=== PATIENT | male | born 1975 | race Caucasian/White ===

== ENCOUNTER 2022-04-25 15:03 | Observation (INO) ==
[2022-04-25 18:00] LABS: Basophils % 0.2 %; Hematocrit 45.3 % (37.5-50.1); Hemoglobin 15.4 g/dL (12.9-16.9); Immature Granulocytes % 0.7 % (0-4); Lymphocytes # 0.5 K/mcL (0.6-4.6); Lymphocytes % 4.5 %; Mean Corpuscular Hemoglobin 31.3 pg (28.0-33.3); Mean Corpuscular Volume 92.1 fL (83.0-100.0); Mean Platelet Volume 11.1 fL (9.4-12.4); Monocytes % 9.2 %; Neutrophils # 9.3 K/mcL (1.6-8.9); Platelet Count 248 K/mcL (140-400); Red Blood Count 4.92 M/mcL (4.19-5.50); Red Cell Distribution Width 14.7 % (11.5-14.5); Segmented Neutrophils % 85.4 %; White Blood Count 10.9 K/mcL (4.3-11.1)
[2022-04-25 18:22] LABS: Albumin/Globulin Ratio 1.1 (1.1-2.2); Bilirubin,Direct 4.2 mg/dL (0.0-0.2); Bilirubin,Indirect 1.7 mg/dL (0.0-1.0); Bilirubin,Total 5.9 mg/dL (0.3-1.0); Calcium 9.3 mg/dL (8.6-10.3); Globulin 3.7 g/dL (2.4-3.5); Potassium 4.5 mEq/L (3.5-5.1); Total Protein 7.7 g/dL (6.4-8.9); Troponin I 0.03 ng/mL (< 0.04)
[2022-04-25] MEDS ORDERED: Iopamidol - 370 500 ML MLS IVP ONE (19:56)
[2022-04-25] MEDS ORDERED: Piperacillin/Tazobactam 3.375 GM in 0.9 % Sodium Chloride Mini Bag 100 ML IVPB ONE (22:15)
[2022-04-26] MEDS ORDERED: Melatonin 3 MG TABLET PO PRN ×2 (00:07→17:13)
[2022-04-26] MEDS ORDERED: Ondansetron 4 MG/2 ML VIAL IVP PRN ×4 (00:07→17:13)
[2022-04-26] MEDS ORDERED: Acetaminophen 325 MG TABLET PO PRN ×2 (00:07→17:13)
[2022-04-26] MEDS ORDERED: Naloxone 0.4 MG/ML INJ IVP PRN ×2 (00:07→17:13)
[2022-04-26] MEDS ORDERED: 0.9 % Sodium Chloride 1,000 ML IVC SCH ×2 (00:15→09:15)
[2022-04-26 05:39] LABS: Hematocrit 42.4 % (37.5-50.1); Mean Corpuscular HGB Conc 32.5 g/dL (31.6-35.5); Mean Corpuscular Hemoglobin 30.9 pg (28.0-33.3); Mean Corpuscular Volume 94.9 fL (83.0-100.0); Platelet Count 190 K/mcL (140-400); Red Blood Count 4.47 M/mcL (4.19-5.50); Red Cell Distribution Width 14.7 % (11.5-14.5); White Blood Count 6.7 K/mcL (4.3-11.1)
[2022-04-26 05:40] LABS: Hemoglobin 13.8 g/dL (12.9-16.9)
[2022-04-26 06:02] LABS: Calcium 8.8 mg/dL (8.6-10.3)
[2022-04-26] MEDS: Piperacillin/Tazobactam 3.375 GM in 0.9 % Sodium Chloride Mini Bag 100 ML IVPB SCH ×3 (09:02→23:05)
[2022-04-26 09:41] LABS: Albumin 3.5 g/dL (3.5-5.7); Albumin/Globulin Ratio 1.1 (1.1-2.2); Bilirubin,Direct 4.3 mg/dL (0.0-0.2); Bilirubin,Indirect 1.4 mg/dL (0.0-1.0); Bilirubin,Total 5.7 mg/dL (0.3-1.0); Globulin 3.3 g/dL (2.4-3.5); Total Protein 6.8 g/dL (6.4-8.9)
[2022-04-26] MEDS ORDERED: Iopamidol - 300 50 ML VIAL ONE (13:54)
[2022-04-26] MEDS ORDERED: *HR* Succinylcholine 200 MG/10 ML VIAL IVP ONE (13:55)
[2022-04-26] MEDS ORDERED: *HR* Midazolam HCl 2 MG/2 ML VIAL ONE (13:55)
[2022-04-26] MEDS ORDERED: *HR* Propofol 200 MG/20 ML VIAL IVP ONE ×2 (13:55→16:13)
[2022-04-26] MEDS ORDERED: *HR* FentaNYL (PF) 100 MCG/2 ML VIAL ONE ×2 (13:55→15:19)
[2022-04-26] MEDS ORDERED: *HR* Rocuronium Bromide 50 MG/5 ML VIAL ONE (13:55)
[2022-04-26] MEDS ORDERED: Lidocaine -MPF 2% 5 ML VIAL ONE (13:55)
[2022-04-26] MEDS ORDERED: Bupivacaine 0.5%-Epi 1:200,000 50 ML VIAL ONE (14:28)
[2022-04-26] MEDS ORDERED: Promethazine 6.25 MG in Water for inj. (sterile) 20 ML IVPB PRN ×2 (14:40→17:13)
[2022-04-26] MEDS ORDERED: Ondansetron 4 MG/2 ML VIAL ONE (15:08)
[2022-04-26] MEDS ORDERED: *HR* Metoprolol 5 MG/5 ML VIAL IVP ONE (15:20)
[2022-04-26] MEDS ORDERED: Ketorolac 30 MG/ML VIAL ONE (15:21)
[2022-04-26] MEDS: *HR* HYDROmorphone PF 0.5 MG/0.5 ML SYRINGE IVP PRN ×2 (16:36→16:44)
[2022-04-26] MEDS ORDERED: *HR* HYDROmorphone PF 0.5 MG/0.5 ML SYRINGE IVP PRN (17:13)
[2022-04-26] MEDS: 0.9 % Sodium Chloride 1,000 ML IVC SCH (17:37)
[2022-04-26] MEDS: atenoloL 50 MG TABLET PO SCH (17:52)
[2022-04-27] MEDS: 0.9 % Sodium Chloride 1,000 ML IVC SCH (03:13)
[2022-04-27 03:40] LABS: Basophils % 0.1 %; Hematocrit 39.7 % (37.5-50.1); Immature Granulocytes % 0.4 % (0-4); Lymphocytes # 0.4 K/mcL (0.6-4.6); Lymphocytes % 5.4 %; Mean Corpuscular HGB Conc 32.7 g/dL (31.6-35.5); Mean Corpuscular Hemoglobin 31.3 pg (28.0-33.3); Mean Corpuscular Volume 95.4 fL (83.0-100.0); Mean Platelet Volume 10.9 fL (9.4-12.4); Monocytes # 0.5 K/mcL (0.0-1.3); Monocytes % 6.4 %; Neutrophils # 6.7 K/mcL (1.6-8.9); Platelet Count 217 K/mcL (140-400); Red Blood Count 4.16 M/mcL (4.19-5.50); Segmented Neutrophils % 87.7 %; White Blood Count 7.6 K/mcL (4.3-11.1)
[2022-04-27 04:04] LABS: Alanine Aminotransferase 97 Units/L (7-52); Albumin 3.4 g/dL (3.5-5.7); Alkaline Phosphatase 124 Units/L (34-104); Aspartate Amino Transferase 74 Units/L (13-39); BUN/Creatinine Ratio 18 (6-26); Bilirubin,Total 1.7 mg/dL (0.3-1.0); Blood Urea Nitrogen 15 mg/dL (6-20); Calcium 8.2 mg/dL (8.6-10.3); Carbon Dioxide 26 mEq/L (23-29); Chloride 104 mEq/L (98-107); Globulin 3.3 g/dL (2.4-3.5); Glucose 120 mg/dL (70-105); Magnesium 2.3 mg/dL (1.6-2.6); Osmolality,Calculated 286 (280-300); Phosphorous 3.1 mg/dL (2.7-4.5); Potassium 4.9 mEq/L (3.5-5.1); Sodium 137 mEq/L (136-145); Total Protein 6.7 g/dL (6.4-8.9)
[2022-04-27 07:20] VITALS: O2SAT 95
[2022-04-27] MEDS: Piperacillin/Tazobactam 3.375 GM in 0.9 % Sodium Chloride Mini Bag 100 ML IVPB SCH (08:53)
[2022-04-27] MEDS: atenoloL 50 MG TABLET PO SCH (08:53)
[2022-04-27] MEDS ORDERED: Venlafaxine XR (24 HR) 75 MG CAP.ER.24H PO SCH (09:00)
[2022-04-27 11:52] VITALS: BP 126/92; PULSE 76; TEMP 97.6
== END 2022-04-27 16:30 | disposition home or self-care (01) ==
LOC: 3NENU 15:03 → EMEROOARM 15:03 → SUATTDRO 22:32 → 3NENU 23:25
PROVIDERS: ADMIT Internal Medicine; ATTEND Family Medicine